=== PATIENT | female | born 1960 | race Two or more races ===

== ENCOUNTER 2024-03-18 11:52 | Emergency (ER) | payer OTHER, SELFPAY ==
[2024-03-18 12:11] VITALS: BP 133/61; PULSE 88; RESP 20; TEMP 37.1; O2SAT 100
[2024-03-18 12:13] VITALS: BP 133/61; PULSE 88; RESP 20; TEMP 37.1; O2SAT 100
--- NOTE | 2024-03-18 12:37 | ED.URI ---
HPI - URI/Sore Throat General Chief Complaint: Upper Respiratory Infection Stated Complaint: Fever / body ache Time Seen by Provider: 03/18/24 12:15 Source: patient Mode of arrival: ambulatory Limitations: no limitations History of Present Illness HPI Narrative: Izzy is a 63-year-old female who presents with complaints of a sore throat and cough. Symptoms began last night after being at a for a family member. She is not aware of any known sick contacts. She also states she has been feeling feverish but has not checked her temperature. She admits to nasal congestion, rhinorrhea, and headache. She denies shortness breath, chest pain, nausea, vomiting, or abdominal pain. MD elicited complaint: cough, sore throat, rhinorrhea and nasal congestion Related Data Home Medications Medication Instructions Recorded Confirmed Unable to Obtain Home Medications 03/18/24 03/18/24 Allergies Allergy/AdvReac Type Severity Reaction Status Date / Time No Known Allergies Allergy Verified 03/18/24 12:12 Review of Systems Review of Systems: Pertinent positives per HPI. Patient denies any rash, visual changes, dizziness, shortness of breath, chest pain, palpitations, nausea, vomiting, diarrhea, constipation, abdominal pain, or any urinary issues. PMFSH Comments At the time of my signature, I reviewed and agree with the nursing past medical, surgical, social, and family history. There is no relevant family history pertinent to the patient complaint. Exam Narrative: General: Well-developed, well nourished, in no apparent distress Head: Normocephalic, atraumatic Eyes: Pupils equally round and reactive to light bilaterally, EOM intact, sclera and conjunctive clear, no discharge, lids normal Ears: TMs intact and clear, ear canals clear, no drainage, grossly hearing normal. Nose: Nares patent Mouth: Oropharynx erythematous without lesions or masses. MMM. Neck: Supple, trachea midline, no enlargement of anterior or posterior cervical nodes, no thyroid masses or goiter palpable. Cardio: Regular rate and rhythm, s1 and s2 normal, no murmur appreciated. Resp: Clear to auscultation bilaterally, no rhonchi, rales, wheezing or rubs Course Course Emergency Course: Portions of this record may have been created with voice recognition software. Level of Care: Express Care Visit Vital Signs Vital signs: Vital Signs Temperature 37.1 C 03/18/24 12:11 Pulse Rate 88 03/18/24 12:11 Respiratory Rate 20 03/18/24 12:11 Blood Pressure 133/61 03/18/24 12:11 Pulse Oximetry 100 03/18/24 12:11 Oxygen Delivery Room Air 03/18/24 12:11 Temperature 37.1 C 03/18/24 12:13 Pulse Rate 88 03/18/24 12:13 Respiratory Rate 20 03/18/24 12:13 Blood Pressure 133/61 03/18/24 12:13 Pulse Oximetry 100 03/18/24 12:13 Oxygen Delivery Room Air 03/18/24 12:13 Vital signs reviewed MDM - URI/Sore Throat MDM Narrative Medical decision making narrative: At the time of visit patient is resting comfortably on the exam table. Patient appears to be nontoxic. Labs: COVID, flu, and strep test were negative in the clinic today. Strep will be sent for culture and if positive you will be called and placed on antibiotics. Plan: I suspect patient has an upper respiratory infection/pharyngitis/viral syndrome. Supportive measures were discussed with the patient and they voiced understanding discharge instructions and agrees to treatment plan. Return precautions reviewed Differential Diagnosis Differential diagnosis: Likely upper respiratory infection, sinusitis, viral infection, influenza and pharyngitis Lab Data Labs: Lab Results 03/18/24 03/18/24 Range/Units 12:19 12:37 POC Inf A,B Int Ctl Ti Yes POC Influenza A Ag Negative POC Influenza B Ag Negative POC SARS CoV-2 Ag Negative (Negative) POC Grp A Strep Screen Presumptive negative Gp A Beta Strep Culture Yes Grp A St
[2024-03-18 12:40] LABS: EDINFLUASCREEN Negative; EDINFLUBSCREEN Negative; EDSTREPNEGPOS1 Presumptive Negative
== END 2024-03-18 12:44 | disposition home or self-care (01) ==
PROVIDERS: Emergency Provider Nurse Practitioner Family; PCP Family Medicine
DX: B34.9 Viral infection, unspecified (principal); J06.9 Acute upper respiratory infection, unspecified; J02.9 Acute pharyngitis, unspecified; Z20.822 Contact with and (suspected) exposure to COVID-19
CPT/HCPCS: 87081; 87426; 87804; 87880; 99203; G0463